=== PATIENT | male | born 1990 | race Caucasian/White ===

== ENCOUNTER 2018-11-21 08:20 | Emergency (ER) | payer BC, SELFPAY ==
[2018-05-02 08:44] VITALS: BMI 25.2
[2018-11-21 08:21] VITALS: BP 128/85; PULSE 84; RESP 16; TEMP 36.3; O2SAT 97; BMI 28.6
--- NOTE | 2018-11-21 08:29 | CT_ITS ---
STUDY: CT ABDOMEN AND PELVIS WITH CONTRAST REASON FOR EXAM: Male, 28 years old. Right lower quadrant pain since last night RADIATION DOSAGE (If Supplied By Facility): CTDIvol = ( 15.15 ) mGy, DLP = ( 928.82 ) mGycm TECHNIQUE: Transaxial images were obtained from the dome of the diaphragm to the symphysis pubis with oral contrast. 100mL IV/Oral Isovue 300 was administered. Sagittal and coronal images were reconstructed. Individualized dose optimization techniques were used for this CT. COMPARISON: None. FINDINGS: The visualized lung bases are unremarkable. The visualized portions of the heart are within normal limits. Normal liver. Normal gallbladder and extrahepatic biliary system. Normal spleen. Normal pancreas. Normal bilateral adrenal glands. Normal right kidney. Normal left kidney. Normal visualized stomach. Normal small intestine. Normal colon. The appendix is visualized and appears normal. Normal abdominal aorta. Normal inferior vena cava. Normal retroperitoneum. Normal urinary bladder. Unremarkable prostate Normal abdominal wall. Normal osseous structures. CT/Abdomen/Pelvis WITH Contrast IMPRESSION: Normal enhanced CT of the abdomen and pelvis. Electronically Signed: Luis Dow DO at 10:59 EDT Tel , Service support ,
[2018-11-21] MEDS: 0.9% Normal Saline 1,000 ML 1000 ML IV (08:40)
[2018-11-21] MEDS: Ketorolac 30 MG/ML Syringe IV (08:40)
[2018-11-21] MEDS: Ondansetron 4 MG/2 ML Vial IV (08:40)
--- NOTE | 2018-11-21 08:40 | ED.VISSUMM ---
- ER Visit Summary Date of Service: 11/21/18 Chief Complaint: Abdominal pain History of Present Illness: The patient is a 28 M patient presents to the emergency department abdominal pain. He states it started about 1130 last night. He states he had a dull ache in the right lower part of his abdomen. He states he ate and did not seem to improve the pain. States today, he is still having pain. He said he feels almost as if he pulled a muscle. He denies any nausea or vomiting. He denies any fevers or chills. Patient is otherwise healthy. Takes no daily medications. He had no prior abdominal surgeries. He denies any urinary symptoms, back pain, chest pain, and otherwise has been in his normal state of health. He denies any sick contacts. Physical Examination: Vital signs reviewed General: Well-nourished, well-developed Head: Normocephalic, atraumatic Eyes: Pupils equal and reactive, extraocular muscles intact Neck, supple, no lymphadenopathy Heart: Regular rate and rhythm Respiratory: No distress, clear bilaterally Abdomen: Soft, mildly tender in the right lower quadrant with minimal guarding without rebound, nondistended, no peritoneal signs Back: Nontender Extremities: Nontender, no edema, no cords Skin: Normal color no rash Neuro: Alert and oriented, no focal or lateralizing deficits Test Results: [] Emergency Department Course and Treatment: The patient presents with mild right lower quadrant abdominal pain. IV was established. I did want to rule out acute appendicitis or other dangerous intra-abdominal process. Patient was given fluids, Toradol, and Zofran. He had improvement of his pain. His labs are unremarkable. Patient underwent CT imaging with both oral and IV contrast. This is unremarkable for acute process. His appendix is visualized and is normal. I am not sure of the acute etiology of the patient's symptoms. This may be mesenteric adenitis. I do not suspect a dangerous process. He was counseled on concerning symptoms and reasons to return. He will be discharged home. Treatment Plan: [] Disposition: Discharge Impression: 1. Right lower quadrant abdominal pain This note was generated with [employer] dictation software. It may contain incorrect words, spelling, and punctuation that were not noted in review of the chart prior to signing ED Disposition - Plan for ED Patient: Instructions: ABDOMINAL PAIN, Unkown Cause, (Male) Referrals: Care Physician,No Primary [Primary Care Provider] -
[2018-11-21 08:49] LABS: Absolute Lymphocyte Count 1.84 X10^3/ul (0.83-4.51); Absolute Neutrophil Count 5.7 X10^3/uL (2.0-7.7); Basophil# 0.03 X10^3/uL; Basophil% 0.4 % (0-1); Eosinophils% 1.2 % (0-5); Hematocrit 46.6 % (40-54); Hemoglobin 16.5 g/dl (13.0-16.5); Lymphocyte # 1.84 X10^3/ul (4.0); Lymphocyte % 22.5 % (19-41); Mean Corp Hgb Conc 35.4 g/gl (32-36); Mean Corpuscular Hgb 29.4 pg (27.0-32.0); Mean Corpuscular Volume 83.1 fL (80-94); Mean Platelet Vol. 10.8 fl (6.2-12.0); Monocyte# 0.51 X10^3/uL; Monocyte% 6.2 % (0-10); Neutrophil % 69.6 % (47-70); POSITIVE COUNT NO; POSITIVE DIFFERENTIAL NO; POSITIVE MORPHOLOGY NO; Platelet Count 200 K/mm3 (150-450); RBC Distribution Width SD 39.7 fl (35.1-43.9); Red Blood Count 5.61 M/mm3 (4.6-6.2); White Blood Count 8.2 K/mm3 (4.4-11.0)
[2018-11-21 09:05] LABS: ALB/GLOB Ratio 1.5 RATIO (0.9-2.4); AST(SGOT) 30 U/L (15-37); Alanine Aminotransfer ALT/SGPT 61 U/L (16-61); Albumin, Serum 4.5 g/dL (3.2-5.0); Alkaline Phosphatase 65 U/L (45-117); Anion Gap 9 (5-15); BUN 11 mg/dL (7-18); BUN/Creat Ratio 12.7 RATIO (10-20); Calcium,Total 9.3 mg/dL (8.5-10.1); Chloride 108 mmol/L (98-107); Creatinine, Serum 0.87 mg/dL (0.70-1.30); EST Glomerular Filtration Rate 112 mL/min (>60); Est Glom Filt Rate - Afr Amer 136 mL/min (>60); Estimated Creatinine Clearance 123.39 ml/min; Glucose 86 mg/dL (74-106); Potassium 3.9 mmol/L (3.5-5.1); Protein, Total 7.5 g/dL (6.4-8.2); Sodium Level 143 mmol/L (136-145)
[2018-11-21 09:18] LABS: Bacteria 0 SEEN /hpf (None Seen); Mucous, Urine 0 SEEN /hpf (<or=2+); Red Blood Cells-Urine 0 SEEN /hpf (0-5); Squamous Epithelial Cells - UA 0 SEEN /hpf (0-5); White Blood Cells 0 SEEN /hpf (0-5)
[2018-11-21 09:50] LABS: Color, Urine Straw (Yellow); Glucose, Dipstick Normal (Normal); Ketone-Dipstick Negative (Negative); Leukocyte Esterase-Dipstick Negative /ul (Negative); Nitrite-Dipstick Negative (Negative); Occult Blood-Urine Negative /ul (Negative); Protein-Dipstick Negative (Negative); Urine Bilirubin Dipstick Negative (Negative); Urine Clarity Clear (Clear); Urine Urobilinogen Normal (Normal)
[2018-11-21 10:39] VITALS: BP 132/75; PULSE 80; RESP 14; O2SAT 98
[2018-11-21 11:16] VITALS: BP 132/71; PULSE 80; RESP 14; O2SAT 98
== END 2018-11-21 11:17 | disposition home or self-care (01) ==
PROVIDERS: Emergency Provider Emergency Medicine
DX: R10.31 Right lower quadrant pain (principal)
CPT/HCPCS: 74177; 80053; 81001; 85025; 96361; 96374; 96375; 99283; J7030; Q9967; A4216; J2405

== ENCOUNTER 2024-06-08 18:47 | Emergency (ER) | payer BC, SELFPAY ==
[2024-06-08 18:48] VITALS: BP 147/95; PULSE 93; RESP 16; TEMP 36.2; O2SAT 99; BMI 29.4
[2024-06-08 19:47] VITALS: BP 133/81; PULSE 70; RESP 12; O2SAT 98
--- NOTE | 2024-06-08 19:48 | EX.ED.DYSGE1 ---
HPI History of Present Illness Chief Complaint: Palpitations Detail of Chief Complaint: Palpitations and heart flip-flopping Informant: patient and spouse/S.O. Onset/Context/Timing Onset: Days Context: Sudden Onset Timing: Intermittent Quality: Flip-flopping of his heart Current Severity: Gone Maximum Severity: Moderate Worsened by: Nothing Relieved by: Nothing Associated Symptoms Associated Symptoms: No associated symptoms or radiation Narrative Narrative: Patient is a 33-year-old male. He is scheduled for a colonoscopy for evaluation of pain for the past several weeks to months. This is scheduled at the [facility]. Patient does have an Apple Watch. Patient did do electrical tracings. All events occurred at rest. Heart rate varied between 92 and a high of 116. Patient did heart tracings on his Apple watch. He saved the tracings. He has a sinus rhythm rate vary between 94 and 116. All episodes of recorded occurred at rest. He had no symptoms other than the flip-flopping sensation. He denies weight gain or weight loss. Denies abdominal pain. He denies constipation or diarrhea. He denies heat or cold intolerance. He denies night sweats. He does have a history of anxiety. Prior similar symptoms: No Recent Illness/Hospitalization: No PFSH PFS Medical History (Updated 06/08/24 @ 21:[address] Adan Rios MD) Anxiety Pilar cyst Hemorrhoids Home Medications ?Medication ?Instructions ?Recorded ?Last Taken ?Type NK 06/08/24 Unknown History Allergy/AdvReac Type Severity Reaction Status Date / Time No Known Allergies Allergy Verified 06/08/24 18:50 Family History Father Hypertension Surgical History Hx of wisdom tooth extraction Social History Smoking Status: Current every day smoker tobacco type: cigarettes second hand exposure: No alcohol intake: current alcohol intake frequency: a few times a week substance use type: does not use caffeine: No what type of physical activity do you participate in: none frequency: does not exercise seatbelt use: always ROS ROS ED Constitutional Constitutional ED: Denies chills, fever(s), subjective or weight loss Eyes Eyes: Denies blurry vision or change in vision ENT ENT ED: Denies ear pain, rhinorrhea or sore throat Cardiovascular Cardiovascular: Reports palpitations and racing heartbeat; Denies chest pain, orthopnea or paroxysmal nocturnal dyspnea Respiratory/Chest Respiratory/Chest: Denies cough, dyspnea, dyspnea on exertion, orthopnea or paroxysmal nocturnal dyspnea Gastrointestinal Gastrointestinal: Denies abdominal pain, nausea or vomiting Musculoskeletal Musculoskeletal: Denies arthralgias or myalgias Integumentary Denies rash Psychiatric Psychiatric: Reports anxiety Endocrine Endocrinology: Denies cold intolerance or heat intolerance EXAM Physical Exam Const Vital Signs: 06/08/24 18:48 06/08/24 18:56 06/08/24 19:47 Temperature 97.1 F L Temperature Source Temporal Pulse Rate 93 70 Respiratory Rate 16 12 Respiratory Effort Normal Blood Pressure 147/95 H 133/81 H Blood Pressure Mean 112 98 Pulse Ox 99 98 Oxygen Delivery Method Room Air Room Air 06/08/24 20:00 Temperature Temperature Source Pulse Rate 66 Respiratory Rate 12 Respiratory Effort Blood Pressure 130/85 H Blood Pressure Mean 100 Pulse Ox 98 Oxygen Delivery Method Room Air Positive well nourished and well developed General Appearance ED: well developed and NAD; Negative for cyanotic, diaphoretic or pallor HEENT Reports moist mucous membranes HEENT Narrative: Head is atraumatic normocephalic. Ears normal. Nares patent. Eyes PERRL and EOMs intact bilaterally General Eye ED: Negative for pale conjunctiva or scleral icterus Neck no lymphadenopathy, supple and no JVD Neck Narrative: Trachea is midline. There is no dysphonia. Resp normal respiratory effort and clear to auscultation bilaterally Cardio regular rate, regular rhythm, S1 normal heart sound, S2 normal heart sound and no murmurs GI normal to inspection, nondistended, normoactive bowel sounds, non-tender, non-distended and no masses; Negative for hepatosplenomegaly Back/Spine no CVA tenderness Extremity normal to inspection General Extremety ED: Negative for edema or tenderness General Extremity: Negative for edema Neuro oriented x3, CN's II-XII intact bilaterally and no sensory deficits noted Sensorium / Orientation: alert Psych mental status grossly normal Skin no rashes or lesions noted, no wounds and skin turgor normal General Skin Exam: elasticity normal; Negative for jaundice or pallor MDM MDM MDM Narrative Medical decision making narrative: Placed on the monitor to determine if patient has any premature atrial beats, premature ventricular beats or evidence of PAT. These 3 strips that patient recorded using his Apple watch did not indicate any dysrhythmia. BMP was obtained to assess for hypokalemia. EKG was obtained to determine if there is any evidence for preexcitation syndrome. Prior records were reviewed. Lab Data Attestation: I reviewed the patient's lab results. Lab results narrative: There is no evidence of hypokalemia. Labs: Laboratory Results - last 24 hr 06/08/24 19:18 Sodium 142 Potassium 3.7 Chloride 109 H Carbon Dioxide 27.0 Anion Gap 7 BUN 15 Creatinine 0.96 Estim Creat Clear Calc 115.27 Est GFR (MDRD) Af Amer 117 Est GFR (MDRD) Non-Af 97 BUN/Creatinine Ratio 15.7 Glucose 84 Calcium 9.3 Rhythm Strip Rhythm Strip: Sinus Rhythm Rate: 77 Ectopy: PAC(s) (Occasional) EKG Initial EKG: Attestation: I personally reviewed and interpreted this EKG as follows: Interpretation: Sinus Rhythm (Rate is 79. UT interval is 144 ms. Cures duration 94 ms. QT duration 34 4 ms. [place] is normal.) Treatment and Re-Evaluation :: When I went into informed the patient that there was no significant findings on the monitor he interrupted me and tell me that he noted irregular beats. I informed him that I was going to tell him that he does have an occasional premature beat however this is nothing to be concerned about or worry about. He seemed frustrated. I informed him that it is not worth worrying about this is not abnormal and for what ever reason he is more perceptive of the premature atrial beats. Discharge Plan Triage Chief Complaint: Palpitations ED Provider: Adan Rios Dx/Rx/DC Orders Clinical Impression: Elevated blood pressure reading in office with white coat syndrome, without diagnosis of hypertension, APC (atrial premature contractions) Instructions: ED About Arrhythmias, ED Hypertension, To Be Confirmed Prescriptions: No Action NK Primary Care Provider: Hernan Rojas NP Referrals: Hernan Rojas NP, [employer] [Primary Care Provider] - 1-2 Weeks Print Language: [place] Disposition Disposition: Home, Self Care
[2024-06-08 19:51] LABS: Anion Gap 7 (5-15); BUN 15 mg/dL (7-18); BUN/Creat Ratio 15.7 RATIO (10-20); Calcium,Total 9.3 mg/dL (8.5-10.1); Chloride 109 mmol/L (98-107); Creatinine, Serum 0.96 mg/dL (0.70-1.30); EST Glomerular Filtration Rate 97 mL/min (>60); Est Glom Filt Rate - Afr Amer 117 mL/min (>60); Estimated Creatinine Clearance 115.27 ml/min; Glucose 84 mg/dL (74-106); Potassium 3.7 mmol/L (3.5-5.1); Sodium Level 142 mmol/L (136-145)
[2024-06-08 20:00] VITALS: BP 130/85; PULSE 66; RESP 12; O2SAT 98
[2024-06-08 21:00] VITALS: BP 128/92; PULSE 67; RESP 18; O2SAT 97
[2024-06-08 21:07] VITALS: BP 128/92; PULSE 67; RESP 18; TEMP 36.7; O2SAT 97
== END 2024-06-08 21:14 | disposition home or self-care (01) ==
PROVIDERS: Emergency Provider Emergency Medicine; PCP Nurse Practitioner Family; Visit Provider Emergency Medicine
DX: I49.1 Atrial premature depolarization (principal); R03.0 Elevated blood-pressure reading, without diagnosis of hypertension; F41.9 Anxiety disorder, unspecified; F17.210 Nicotine dependence, cigarettes, uncomplicated
CPT/HCPCS: 80048; 93005; 99283; A4216